=== PATIENT | male | born 1955 | race Caucasian/White ===

== ENCOUNTER 2016-12-23 17:14 | Emergency (ER) | payer MEDICARE, MEDICAID ==
[~2016-12-23] VITALS: Ht 170.2 cm; Wt 45.4 kg
[2016-12-23] MEDS ORDERED: MECLIZINE HCL25 M1 PO (17:29)
[2016-12-23] MEDS ORDERED: METFORMIN HCL1000 M2 PO (17:30)
[2016-12-23] MEDS ORDERED: GABAPENTIN300 MG PO (17:30)
[2016-12-23] MEDS ORDERED: NOVOLOG100 UNIT/1 (17:35)
[2016-12-23] MEDS ORDERED: LANTUS100 UNITS/ (17:35)
[2016-12-23] MEDS ORDERED: LANTUS100 UNITS/ SUB-Q (17:36)
--- NOTE | 2016-12-26 13:28 | EKG ---
[facility] [address] [facility] [place], [place] [address] Signed Normal sinus rhythm Normal ECG No previous ECGs available Confirmed by NANNETTE CRUZ MD [id number] on 12/26/2016 1:28:23 PM Electronically Signed By: NANNETTE CRUZ MD 12/26/16 1328 PATIENT NAME: PATRICK ROGERS Electrocardiogram DATE OF : 51 PHYSICIAN: NANNETTE CRUZ MD REPORT #: [id number] REPORT IS CONFIDENTIAL AND NOT TO BE RELEASED WITHOUT AUTHORIZATION
== END 2016-12-23 21:12 | disposition home or self-care (01) ==
LOC: ED 17:14
PROC: 4A0D7LZ Measurement of Urinary Volume, Via Natural or Artificial Opening (ICD-10-PCS; principal; 2016-12-23)
DX: E11.65 Type 2 diabetes mellitus with hyperglycemia (principal); F15.10 Other stimulant abuse, uncomplicated; J44.9 Chronic obstructive pulmonary disease, unspecified; F17.200 Nicotine dependence, unspecified, uncomplicated; Z88.8 Allergy status to other drugs, medicaments and biological substances; Z88.5 Allergy status to narcotic agent; Z79.899 Other long term (current) drug therapy; Z79.4 Long term (current) use of insulin
CPT/HCPCS: 51798; 80053; 81001; 82010; 82800; 83605; 84484; 85025; 93005; 93010; 96365; 96366; 99284; G0480; J7030